=== PATIENT | male | born 1995 ===

== ENCOUNTER 2017-03-23 06:49 | Day surgery (SDC) | payer MEDICAID ==
[2017-03-22 11:56] VITALS: BMI 25.1
[2017-03-23] MEDS ORDERED: Lidocaine 2% w Epi 1:100,000 Inj IJ ONE (07:27)
[2017-03-23] MEDS ORDERED: Propofol 10 mg/ml Inj (20 ML) ONE ×2 (07:59→08:46)
[2017-03-23] MEDS ORDERED: Midazolam 2 MG/2 ML VIAL ONE (08:00)
[2017-03-23] MEDS ORDERED: Lactated Ringer's 1,000 ML IV ONE ×2 (08:00→10:00)
[2017-03-23] MEDS ORDERED: Succinylcholine 200 mg/10 ml Inj IV ONE (08:00)
[2017-03-23] MEDS ORDERED: Rocuronium 10 mg/ml (5 ml) ONE ×2 (08:03→09:04)
[2017-03-23] MEDS ORDERED: Ropivacaine 0.5% 30ML IV ONE (08:12)
--- NOTE | 2017-03-23 08:24 | CP.PCM.HP ---
History of Present Illness - History of Present Illness History of Present Illness: This is a 21 yo male patient who presents today for pre-operative evaluation. Pt says that he has been having left shoulder pain for the past 6 months. Denies any trauma, injury or inciting event that initiated this pain. Says that it was much worse when it began but has improved somewhat. Says it mostly hurts him when he lifts heavy objects or when he is sitting for a long time his upper left back begins to hurt. Denies any numbness, weakness, or tingling. Denies taking any medication for the pain. NPO status confirmed since midnight last night. Denies any other problems. PMH: denies ALL: denies Meds: denies SHx: denies FHx: denies Soc. Hx: lives at home with Mom in [place], denies ETOH, denies smoking, denies illicit drug use Present on Admission - Present on Admission Any Indicators Present on Admission: No Review of Systems - Review of Systems Review of Systems: All systems reviewed and negative except for HPI Past Patient History - Past Medical History & Family History Past Medical History?: No - Past Social History Smoking Status: Never Smoked - SURGICAL HISTORY Hx Surgeries: No - ANESTHESIA Hx Anesthesia: No Hx Anesthesia Reactions: No Hx Malignant Hyperthermia: No Has any member of the family had a problem w/ anesthesia?: No Meds Allergies/Adverse Reactions: Allergies Allergy/AdvReac Type Severity Reaction Status Date / Time No Known Allergies Allergy Verified 03/22/17 11:56 Physical Exam - Constitutional Appears: Well, Non-toxic, No Acute Distress - Head Exam Head Exam: ATRAUMATIC - Eye Exam Eye Exam: EOMI, Normal appearance - ENT Exam ENT Exam: Mucous Membranes Moist, Normal Exam - Respiratory Exam Respiratory Exam: NORMAL BREATHING PATTERN - Cardiovascular Exam Cardiovascular Exam: REGULAR RHYTHM, +S1, +S2 - Extremities Exam Additional comments: Tenderness to palpation of left shoulder (posterior aspect) at the CC joint level - Neurological Exam Neurological exam: Alert, CN II-XII Intact, Oriented x3 - Psychiatric Exam Psychiatric exam: Normal Affect, Normal Mood Results - Vital Signs Recent Vital Signs: Last Vital Signs Temp 98 F 03/23/17 07:59 Pulse 58 L 03/23/17 07:59 Resp 18 03/23/17 07:59 BP 123/74 03/23/17 07:59 Pulse Ox 100 03/23/17 07:59 Assessment & Plan - Assessment and Plan (Free Text) Assessment: 21 yo male with left shoulder pain secondary to shoulder dislocation Plan: -Pt S&E at bedside -Chart, labs and vitals reviewed. -NPO status confirmed -Pt agreeable and ready for surgery today for left shoulder arthroscopic coracoclavicular ligament reconstruction -All questions and concerns addressed with patient -Pt to follow up with Dr. Garcia
[2017-03-23] MEDS ORDERED: Sevoflurane - Inhalation Anesthetic Liq (250 ml) ONE (08:30)
[2017-03-23] MEDS ORDERED: Esmolol 100 mg/10ml Inj IV ONE (09:03)
[2017-03-23] MEDS ORDERED: Neostigmine Methylsulfate 2 MG/2 ML ML IV ONE (09:07)
[2017-03-23] MEDS ORDERED: Neostigmine Methylsulfate 3mg/3ml Syringe IV ONE (09:07)
[2017-03-23] MEDS ORDERED: Lidocaine 2% w Epi 1:200,000 Pf Inj IJ ONE (09:25)
[2017-03-23] MEDS ORDERED: Dexamethasone 4 mg/1 ml ONE (10:22)
[2017-03-23] MEDS ORDERED: HYDROmorphone 0.5 mg/0.5 ml ISec IVP PRN (11:42)
--- NOTE | 2017-03-23 11:42 | PCM.ANESB1 ---
Interscalene Block - Brachial Plexus Date of Procedure: 03/23/17 Anesthesiologist: Gigi Pre-Procedure Diagnosis: Left shoulder dislocation Post-Procedure Diagnosis: Same Procedure Performed: Interscalene Block of Brachial Plexus Left - Procedure Interscalene Block of Brachial Plexus: This procedure was explained to the patient that it is for post-operative pain management. Consent was obtained after a thorough discussion with the patient regarding the benefits and possible complications of local anesthetic block of the Brachial Plexus at the Interscalene area. The patient was brought to the Operating Room and standard monitors were applied. Time out was held with the circulating nurse to confirm the correct surgery and appropriate block. After surgery was completed and the patient was extubated and became responsive, the patient's head was gently rotated away from the ___left___operative shoulder and the anterior scalene groove was carefully palpated. The ultrasound transducer was then applied to the skin in the transverse plane and the brachial plexus was visualized lateral to the carotid artery and in between the anterior and middle scalene muscles. After identification,the anterior lateral portion of the neck was prepped with Betadine solution three times and Lidocaine 1% was injected subcutaneously for topical analgesia. At this point, a # 22 gauge Stimuplex 2 inches insulated needle was inserted into the interscalene groove and directed in a caudal and midline direction. The needle was inserted lateral to the ultrasound transducer in-plane towards the brachial plexus in a [id number] direction. Needle advancement was performed carefully under direct ultrasound visualization. Nerve stimulator was used and twitched of the affected extremity including the hand brachialis muscles, biceps and the deltoid was obtained at a current of __0.4___MA. After repeated negative aspiration,__20___cc of__0.5%___,___Ropivacaine were injected. Under ultrasound guidance the local anesthetics were observed surrounding the roots of the brachial plexus. The needle was removed intact and sterile dressing was applied. The patient had stable vital signs, was conscious and in no apparent distress. The patient tolerated the interscalene block of the bracheal plexus well with stable vital signs and was then transferred to PACU.
--- NOTE | 2017-03-23 11:45 | PCM.SURG1 ---
Surgeon's Initial Post Op Note - Surgeon's Notes Surgeon: Chloe Garcia MD Freelance Writer: Ashley Santos PA-C; Elaina Briones MD Type of Anesthesia: General Endo, Other (Interscalene block ) Pre-Operative Diagnosis: Left shoulder dislocation, AC Separation Operative Findings: See op report Post-Operative Diagnosis: Same as pre-op dx Operation Performed: Left Shoulder Arthroscopic Coracoclavicular ligament reconstruction with allograft Specimen/Specimens Removed: none Estimated Blood Loss: EBL {In ML}: 40 Date of Surgery/Procedure: 03/23/17 Time of Surgery/Procedure: 09:30
[2017-03-23] MEDS ORDERED: Oxycodone/Acetaminophen 5/325 mg Tab PO PRN (11:46)
[2017-03-23 14:04] VITALS: BP 138/74; PULSE 88; RESP 18; TEMP 98.5; O2SAT 97
--- NOTE | 2017-03-23 14:20 | OP ---
PROCEDURE DATE: 03/23/2017 DATE OF OPERATION: 03/23/2017 ATTENDING PHYSICIAN: Chloe Garcia MD ASSISTANTS: APOLONIA Rodriguez PREOPERATIVE DIAGNOSES: 1. 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 2. Left shoulder synovitis. POSTOPERATIVE DIAGNOSES: 1. 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 2. Synovitis. 3. Tear of the anterior and posterosuperior labrum. 4. AC joint arthritis. ANESTHESIA: General, interscalene block. PROCEDURES: 1. Left shoulder arthroscopic assisted CC joint ligament reconstruction using Allograft. 2. Extensive debridement. 3. Lysis of adhesions without manipulation. 4. Distal clavicle resection. EBL: 20 mL. SPECIMENS: None. CLOSURE: Primary FLUIDS: See anesthesia sheet ANTIBIOTICS: See anesthesia sheet COMPLICATIONS: None. Indications: After failing a course of non-operative therapy, the patient elected to undergo the above procedures. In the office the risks and possible complications of the shoulder arthroscopy were discussed in detail with the patient. These risks include, but are not limited to: continued pain, lack of motion, infection, vascular injury, and nerve injury including axillary nerve dysfunction, reflex sympathetic dystrophy, compartment syndrome, limb loss, and . The patient expressed an understanding of the risks and possible benefits of the procedure, and was also made aware of the alternatives to surgery. An informed consent was obtained, and was checked immediately pre-op. Procedure 1: The patient was correctly identified in the holding area and the left shoulder was marked with the surgeon's initials. The patient was transported to the operating room and placed in the supine position and general anesthesia and regional interscalene block anesthesia was obtained. A preoperative orthopedic examination revealed a passive range of motion of 160 degrees of forward elevation, 30 degrees of external rotation, and 120 degrees of abduction. Stability examination revealed: No instability. Examination of the glenohumeral joint revealed: 1. Extensive synovitis. 2. Anterior capsular adhesions. 3. Tear of the anterior and posterosuperior labrum. Using the probe the labrum was circumferentially assessed for tear. Tears were note at anterior posterosuperior labrum. Using the 4.0 motorized shaver and radiofrequency probe, the torn edges of the labrum were debrided until stable rim, preventing any further propagation. Excessive glenohumeral synovitis was cleared with a 4.0 mm full radius shaver. The hypertrophic, erythematous synovium was resected, hemostasis was maintained with the radiofrequency device. The radiofrequency device was introduced through the anterior portal and a radiofrequency anterior capsular rotator interval lysis of adhesions was performed. The anterior capsule was released to optimize range of motion. The radiofrequency device was used to provide hemostasis during this procedure. After the lysis of adhesions, passive range of motion measured 170 degrees of forward elevation, 60 degrees of external rotation, and 150 degrees of abduction. At this point, the arthroscope was withdrawn from the glenohumeral joint and subacromial space was then entered using a blunt trocar. Gentle resistance sweeping against the coracoacromial ligament confirmed proper placement of the sheath and the arthroscope was inserted. A 1-cm incision was made at the inferolateral acromial area to create the lateral portal. Examination of the subacromial space revealed: 1. Bursitis. 2. AC joint arthritis. Visualization of the subacromial space was difficult due to excessive bursitis. A bursectomy was performed using a combination of radiofrequency device as well as a 4.0-mm full radius motorized shaver. After adequate subacromial decompression, attention was then turned to the acromioclavicular joint which was localized using a 21 gauge spinal needle. A single 1 cm incision was placed on the superior aspect of the acromioclavicular joint, and the arthroscope and radio frequency device were then inserted. Utilizing the radio frequency device for hemostasis as well as tissue ablation, the perimeter of the distal clavicle was denuded of soft tissue. Care was taken to preserve the supero-posterior soft tissue ligamentous attachments to the distal clavicle. A 4.0 mm conical guadalupe was introduced through the superior portal and 7mm of distal clavicle was excised. One mm of medial acromion was also resected. All resected bone was planed to a smooth, flat surface, and was checked by arthroscopic visualization from the superior AC joint portal. The patient's chronic AC joint dislocation was direct with anatomic arthroscopic assisted CC ligament reconstruction. The patient, using arthroscope, the coracoid base was identified and using an ArthroGuide, a 3 mm drill hole was drilled from the top of the clavicle at the base of the coracoid. The suture was passed and using the suture, the dog bone technique was used to provide nonbiologic fixation. The joint was reduced and confirmed on AP and lateral videograph. Next, we used Arthrex semitendinosis 8 mm graft which was packed with arthroscopic assistance under the base of the coracoid. Once again, with the shoulder reduced, the gap graft was tied to itself with heavy Ethibond sutures on top of the clavicle. Final radiograph was taken confirming the anatomic reduction and fixation. The subacromial space was then irrigated with sterile saline, and closure was instituted with sutures. A dressing was placed consisting of Xeroform, 4 x 4's , ABD pads, and tape. The patient was placed in a sling with an ABD pad in the axilla. The patient was then placed in a supine position and extubated without incident. The patient was transferred to the recovery room in stable condition , having tolerated the procedure well. Post-operatively, the patient will be maintained in a abduction sling. Also, provided with my rehab protocol, defining the restriction and sling use for 6 weeks. Follow up in 10 days. During this procedure, I was assisted by APOLONIA Rodriguez, who assisted in positioning the patient on the operating room table as well as transferring the patient from the operating room table to the recovery room stretcher. In addition, APOLONIA Rodriguez, assisted me during the actual operative procedure by positioning the patient's extremity to allow for easier arthroscopic access to all areas of the joint. The presence of APOLONIA Rodriguez, as my operative retail sales assistant was medically necessary to ensure the utmost safety of the patient in the pre, intra-, and post-operative periods. Chloe Garcia MD cc: [id number] TT: 03/23/2017 14:19:19 luis ALVARENGA
--- NOTE | 2017-03-23 15:46 | RAD ---
PROCEDURE: Radiographs of the Left Shoulder HISTORY: s/p left shoulder athroscopy COMPARISON: No prior. FINDINGS: BONES: No acute fracture. Orthopedic device noted likely repairing coracoclavicular ligamentous disruption. Small radiopaque buttons seen on superior surface of the clavicle and on the inferior surface of coracoid process. JOINTS: Normal. Glenohumeral and acromioclavicular joints preserved. No osteoarthritis. SOFT TISSUES: There is gas seen within soft tissue above the clavicle consistent with recent arthroscopy. OTHER FINDINGS: None. IMPRESSION: Orthopedic hardware as described.
--- NOTE | 2017-03-23 16:08 | RAD ---
PROCEDURE: Intraoperative fluoroscopy HISTORY: LEFT SHOULDER COMPARISON: Not available TECHNIQUE: Intraoperative fluoroscopy was provided for arthroscopic left shoulder surgical procedure. Total time of fluoroscopy was 10.9 seconds. FINDINGS: Five fluoroscopic spot films are submitted. Films are on file for review. IMPRESSION: Fluoroscopy provided.
== END 2017-03-23 16:00 | disposition home or self-care (01) ==
LOC: H.OPSURG 06:49
PROVIDERS: ATTEND Orthopaedic Surgery
DX: M24.412 Recurrent dislocation, left shoulder (principal); M65.812 Other synovitis and tenosynovitis, left shoulder; M13.812 Other specified arthritis, left shoulder